=== PATIENT | female | born 1975 | race Two or more races ===

== ENCOUNTER → 2018-03-17 15:54 | Outpatient (CLI) | payer MEDICAID, SELFPAY ==
--- NOTE | 2018-03-17 | CER_PTH ---
PATIENT: MARK GIRON LOC: JEAN U#:[id number] AGE/SX: 49/F ROOM: RE03/17/[address]: Dr. Zeyad Posey MD : 1975 BED: DIS: SPEC #: [id number] RECD: 03/18/18 08:21 STATUS: AALIYAH ANUJ #: [id number] KATHERINE: 03/17/18 00:[address]: Zeyad Posey DEPT: SURGICAL PATHOLOGY RECD BY: Marcelo Rodriguez Tissues: A - Uterine cervix, NOS B - Endocervical Procedures: Surgery Specimen Level IV HEADER OPERATION: Colposcopy with biopsy PRE-OP DIAGNOSIS: LGSIL R87.612 TISSUE SUBMITTED: A - Cervical biopsy, B - ECC MICROSCOPIC DIAGNOSIS A. Cervix, biopsy: Focal HPV change suspected. Mild chronic inflammation. B. Endocervix, curettings: Rare fragments of superficial endocervix. Detached squamous mucosa with focal changes suspicious for HPV cytopathic effect. AM:jakob 03/19/18 COMMENT A & B. Results from immunohistochemistry ([id number]) for surrogate HPV marker (p16) will be reported separately. MICROSCOPIC DESCRIPTION Slides are reviewed. GROSS DESCRIPTION A - Received in fixative is one container labeled with the patient's name and designated cervix biopsy. The specimen consists of multiple irregular fragments of light elizabeth soft tissue that in aggregate measure 0.7 x 0.5 x 0.1 cm. The specimen is totally submitted in one cassette. B - Received in fixative is one container labeled with the patient's name and designated ECC. The specimen consists of multiple irregular fragments of dark elizabeth soft tissue that in aggregate measure 1 x 0.2 x <0.1 cm. The specimen is totally submitted in one cassette. / AM:jakob 03/18/18 TC:3 CPT: 52659 x2
--- NOTE | 2018-03-17 | IMM_PTH ---
PATIENT: MARK GIRON LOC: JEAN U#:[id number] AGE/SX: 49/F ROOM: RE03/17/[address]: Dr. Zeyad Posey MD : 1975 BED: DIS: SPEC #: [id number] RECD: 03/22/18 09:22 STATUS: AALIYAH REJag #: [id number] KATHERINE: 03/17/18 00:[address]: Zeyad Posey DEPT: IMMUNOHISTOCHEMISTRY RECD BY: Carley Solomon Tissues: A - Uterine cervix, NOS B - Endocervical Procedures: p16 (initial) KI-67 (add) PHYSICIAN & INSTITUTION [place] [address] SPECIMEN INFORMATION: Tissue Source: A - Cervical biopsy, B - ECC Clinical Info: MARIAMSIL Specimen Number: [id number] A & B CPT code: 34443 x2, 49029 x2 METHODOLOGY: Deparaffinized sections of prefer/formalin-fixed tissue or PAP/DQ stained slides are incubated with monoclonal/polyclonal antibodies/oligonucleotide probes. Localization is made via biotin free immunoperoxidase method. Appropriate controls are performed and reacted as expected. Results on target cell population are indicated in the following table: RESULTS: ANTIBODY / CLONE RESULT Block A P16 (E6H4) negative Ki-67 (30-9) negative Block B P16 (E6H4) negative Ki-67 (30-9) negative These tests were developed and their performance characteristics determined by [facility]. They may not have been cleared or approved by the U.S. Food and Drug Administration. The FDA has determined that such clearance or approval is not necessary. INTERPRETATION: A. Cervical biopsy: Focal HPV change suspected. B. Endocervix, curettage: Focal HPV change suspected. AM:jakob 03/22/18
--- OUTSIDE RECORDS SUMMARY | 2018-05-19 18:31 | XMS RPT_ITS ---
:1975 Author Organization OHIP Care Team Providers Name Role Phone GENTRY BLAKE, DR. Kamaljit ABREU Attending Unavailable GENTRY BLAKE, DR. Kamaljit ABREU Attending Unavailable GENTRY BLAKE, DR. Kamaljit ABREU Attending Unavailable GENTRY BLAKE, DR. Kamaljit ABREU Attending Unavailable GENTRY BLAKE, DR. Kamaljit ABREU Attending Unavailable Zeyad Posey Attending Unavailable Zeyad Posey Referring Unavailable PROBLEMS PROBLEMS DATE TYPE CONDITION / CODE ATTENDING STATUS SOURCE 03/18/2018 Unknown R87.612 - Low grade Zeyad Posey Active [facility] lesion on cytologic Repository smear of cervix (LGSIL) / R87.612(ICD-10) 01/25/2018 Admitting Melanocytic nevi, GENTRY BLAKE, Active [facility] Diagnosis unspecified / DR. Kamaljit Marie D22.9(ICD-10) Repository 01/25/2018 Admitting Encounter for GENTRY BLAKE, Active [facility] Diagnosis screening for DR. Kamaljit Marie infections with a Repository predominantly sexual mode of transmission / Z11.3(ICD-10) 01/18/2018 Admitting Encounter for GENTRY BLAKE, Active [facility] Diagnosis screening for DR. Kamaljit Marie malignant neoplasm Repository of cervix / Z12.4(ICD-10) 09/30/2017 Admitting Other fatigue / GENTRY BLAKE, Active [facility] Diagnosis R53.83(ICD-10) DR. 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 Kamaljit Marie I10(ICD-10) Repository PROCEDURES PROCEDURES No Procedure Records FoundRESULTS RESULTS CERVICAL Observed: 03/17/2018 Status: F Source: RUI 12:00 AM [facility] REPOSITORY Patient: MARK GIRON : 1975 (42/F) Acct Num: [id number] Phys: Kalpesh MIRANDA,[facility] Num: [id number] Loc: LABSPEC Specimen: [id number] Received: 03/18/18820 Spec Type: CERV TISSUES 1 TISSUES: A. Uterine cervix, NOS B. Endocervical COMMENT A AND B. Results from immunohistochemistry ([id number]) for surrogate HPV marker ( p16) will be reported separately. GROSS DESCRIPTION A - Received in fixative is one container labeled with the patient's name and designated cervix biopsy. The specimen consists of multiple irregular fragments of light elizabeth soft tissue that in aggregate measure 0.7 x 0.5 x 0.1 cm. The specimen is totally submitted in one cassette. B - Received in fixative is one container labeled with the patient's name and designated ECC. The specimen consists of multiple irregular fragments of dark elizabeth soft tissue that in aggregate measure 1 x 0.2 x <0.1 cm. The specimen is totally submitted in one cassette. / AM:jakob 03/18/18 TC:3 CPT: 46958 x2 HEADER OPERATION: Colposcopy with biopsy PRE-OP DIAGNOSIS: LGSIL R87.612 TISSUE SUBMITTED: A - Cervical biopsy, B - ECC MICROSCOPIC DESCRIPTION Slides are reviewed. MICROSCOPIC DIAGNOSIS A. Cervix, biopsy: Focal HPV change suspected. Mild chronic inflammation. B. Endocervix, curettings: Rare fragments of superficial endocervix. Detached squamous mucosa with focal changes suspicious for HPV cytopathic effect. AM:jakob 03/19/18 Signed Tima Pulido DO 03/22/18 <signature on file> Performed By: #### PCER #### Laboratory [address] [place], [address] IMMUNOHISTOCHEMISTRY Observed: 03/17/2018 Status: F Source: EXCHANGE 12:00 AM [facility] REPOSITORY Patient: MARK GIRON : 1975 (42/F) Acct Num: [id number] Phys: Kalpesh MIRANDA,Zeyad Unit Num: [id number] Loc: LABSPEC Specimen: [id number] Received: 03/22/18921 Spec Type: IMMUNO TISSUES 1 TISSUES: A. Uterine cervix, NOS B. Endocervical SPECIMEN INFORMATION: Tissue Source: A - Cervical biopsy, B - ECC Clinical Info: LGSIL Specimen Number: [id number] A AND B CPT code: 49546 x2, 97249 x2 METHODOLOGY: Deparaffinized sections of prefer/formalin-fixed tissue or PAP/DQ stained slides are incubated with monoclonal/polyclonal antibodies/oligonucleotide probes. Localization is made via biotin free immunoperoxidase method. Appropriate controls are performed and reacted as expected. Results on target cell population are indicated in the following table: RESULTS: ANTIBODY / CLONE RESULT Block A P16 (E6H4) negative Ki-67 (30-9) negative Block B P16 (E6H4) negative Ki-67 (30-9) negative These tests were developed and their performance characteristics determined by Laboratory. They may not have been cleared or approved by the U.S. Food and Drug Administration. The FDA has determined that such clearance or approval is not necessary. INTERPRETATION: A. Cervical biopsy: Focal HPV change suspected. B. Endocervix, curettage: Focal HPV change suspected. AM:jakob 03/22/18 PHYSICIAN AND INSTITUTION [place] [address] Signed Tima Pulido, 03/22/18 <signature on file> Performed By: #### PIMM #### Laboratory [address] [place] [address]. [place], [address] CTPCR Collected: 01/25/2018 Status: F Source: [facility] 4:20 PM [facility] REPOSITORY TYPE CODE TESTS RESULT OUT OF REFERENCE UNITS RANGE LAB SCCTPCR(FRANSISCA NC) [facility] Urine Source LAB CTPCR1(LOIN Negative C) Negative C.trachomati s PCR Result Comment: Molecular (PCR) assay performed on the Tania Jaycee 4800 system. LAB CTINT(LOINC) See CT Interp N C. trachomatis Interp Result Comment: C. trachomatis DNA not detected. Specimen is presumptive negative for C. trachomatis. A negative result does not preclude C. trachomatis infection because results depend on adequate specimen collection, absence of inhibitors, and sufficient DNA to be detected. See CT Interp N Performed By: #### CTPCR, NGPCR1 #### [facility] [address] [place] [address] NGPCR Collected: 01/25/2018 Status: F Source: [facility] 4:20 PM [facility] REPOSITORY TYPE CODE TESTS RESULT OUT OF REFERENCE UNITS RANGE LAB GCSRC(LOIN C) GC PCR Source Urine LAB NGPCR(LOIN Negative C) N. gonorrhoeae (PCR) Negative Result Comment: Molecular (PCR) assay performed on the Atnia Jaycee 4800 System. LAB NGINT(LOINC) See NG Interp N N. gonorrhoeae Interp Result Comment: N. gonorrhoeae DNA not detected. Specimen is presumptive negative for N. gonorrhoeae. A negative result does not preclude Neisseria gonorrhoeae infection because results depend on adequate specimen collection, absence of inhibitors, and sufficient DNA to be detected. See NG Interp N Performed By: #### CTPCR, NGPCR1 #### [address] [address] FINAL SURGICAL Observed: 01/25/2018 Status: F Source: [facility] PATHOLOGY REPORT 4:20 PM [facility] REPOSITORY . 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 MARGINS FREE. CLINICAL INFORMATION: BENIGN MOLE SPECIMEN: A SKIN - CHEST GROSS DESCRIPTION: Received in formalin labeled chest skin is a 1.4 x 0.5 x 0.4 cm elizabeth skin ellipse. The surface displays a 0.5 x 0.4 cm ill defined, irregularly shaped, brown macule. No orientation is given. The specimen is inked, sectioned, and entirely submitted in one cassette. Dictated by Scarlett PHILLIPS ([facility]) MICROSCOPIC DESCRIPTION: Slides reviewed. Electronically Signed by Pathology Report verified by [facility] Electronically signed by JOSSUE E SENIOR DO Sign out Date: 01/27/2018 14:19 Performing Lab: [address] Performed By: #### SPFR #### [place] [address] CUSTOMER EXPERT CYTOLOGY REPORT Observed: 01/18/2018 Status: F Source: [facility] 4:27 PM [facility] REPOSITORY . Pathology Reports Accession: Collected Date/Time: Received Date/Time: Pathologist: [id number] 01/18/2018 16:27 EST 01/18/2018 18:00 EST DO JOSSUE MERRILL Harp Maker Cytology Report SPECIMEN: Specimen Description: Liquid Prep Reflex ASCUS Specimen: Cervical Screening or Diagnostic: Screening RELEVANT HISTORY: LMP: Not Given SPECIMEN ADEQUACY: SATISFACTORY FOR EVALUATION ENDOCERVICAL/TRANSFORMATIONAL ZONE COMPONENT ABSENT/INSUFFICIENT INTERPRETATION/RESULTS: LOW GRADE SQUAMOUS INTRAEPITHELIAL LESION Electronically Signed by Pathology report verified by [facility] Screened by: EVANGELINA MES Electronically signed by JOSSUE MERRILL DO Sign-Out Date: 01/25/2018 12:23 Performing Lab: [address] Disclaimer The Pap test is a screening test for cervical cancer. As evidenced by published data, it is subject to both inherent false negative and false positive results. Your patient's results should be interpreted in context with pertinent clinical history including gynecological examination. Performed By: #### GYCR #### [place] [address] .GFR Collected: 09/30/2017 Status: F Source: [facility] 9:09 AM [facility] REPOSITORY TYPE CODE TESTS RESULT OUT OF REFERENCE UNITS RANGE LAB GFRAA(LOINC ml/min/1.73 ) sqm GFR >60 Montenegrin Result Comment: GFR Population mean for , Non- Americans Ages 20-29 = 116 mL/min/1.73 sq.m. Ages 30-39 = 107 mL/min/1.73 sq.m. Ages 40-49 = 99 mL/min/1.73 sq.m. Ages 50-59 = 93 mL/min/1.73 sq.m. Ages 60-69 = 85 mL/min/1.73 sq.m. Ages 70+ = 75 mL/min/1.73 sq.m. Chronic Kidney Disease: Less than 60 mL/min/1.73 square meters End Stage Renal Disease: Less than 15 mL/min/1.73 square meters LAB GFRNO(LOINC) ml/min/1.73sqm GFR Non- >60 Result Comment: GFR Population mean for , Non- Americans Ages 20-29 = 116 mL/min/1.73 sq.m. Ages 30-39 = 107 mL/min/1.73 sq.m. Ages 40-49 = 99 mL/min/1.73 sq.m. Ages 50-59 = 93 mL/min/1.73 sq.m. Ages 60-69 = 85 mL/min/1.73 sq.m. Ages 70+ = 75 mL/min/1.73 sq.m. Chronic Kidney Disease: Less than 60 mL/min/1.73 square meters End Stage Renal Disease: Less than 15 mL/min/1.73 square meters Performed By: #### GFR, CBC, ADIFF, ANEU, TSH, CMP, B12, LIPID #### [address] [address] CBC Collected: 09/30/2017 Status: F Source: [facility] 9:09 AM [facility] REPOSITORY TYPE CODE TESTS RESULT OUT OF REFERENCE UNITS RANGE LAB WBC(LOINC) 4.50-10.80 10 3/mcL WBC 9.10 LAB RBCCT(LOINC 4.10-5.30 10 6/mcL ) RBC 4.48 LAB HGB(LOINC) 12.0-16.0 G/dL Hgb 13.2 LAB HCT(LOINC) 34.0-46.0 % Hct 39.7 LAB MCV(LOINC) 80.0-99.0 fL MCV 88.6 LAB MCH(LOINC) 27.0-33.0 pg MCH 29.4 LAB MCHC(LOINC) 32.0-36.0 G/dL MCHC 33.2 LAB RDW(LOINC) 11.5-15.5 % RDW 14.7 LAB PLT(LOINC) 150-450 10 3/mcL Platelet 310 LAB MPV(LOINC) 6.6-10.5 fL MPV 9.2 Performed By: #### GFR, CBC, ADIFF, ANEU, TSH, CMP, B12, LIPID #### [place] [address] .AUTO DIFF Collected: 09/30/2017 Status: F Source: [facility] 9:09 AM [facility] REPOSITORY TYPE CODE TESTS RESULT OUT OF REFERENCE UNITS RANGE LAB LUCY(LOINC) 50.0-75.0 % Neutrophil % 67.0 LAB LYM(LOINC) 20.0-40.0 % Lymphocyte % 23.3 LAB MON(LOINC) 2.0-13.0 % Monocyte % 6.3 LAB EO(LOINC) 0.0-6.0 % Eosinophil % 2.8 LAB BAS(LOINC) 0.0-2.5 % Basophil % 0.6 LAB ABLYM(LOIN 0.90-4.32 10 3/mcL C) Lymphocyte, 2.10 Absolute LAB VAL(LOINC 0.09-1.40 10 3/mcL ) Monocyte, 0.60 Absolute LAB AEOS(LOINC 0.00-0.65 10 3/mcL ) Eosinophil, 0.30 Absolute LAB ABAS(LOINC 0.00-0.27 10 3/mcL ) Basophil, 0.10 Absolute Performed By: #### GFR, CBC, ADIFF, ANEU, TSH, CMP, B12, LIPID #### [place] [address] .NEUABS Collected: 09/30/2017 Status: F Source: [facility] 9:09 AM [facility] REPOSITORY TYPE CODE TESTS RESULT OUT OF REFERENCE UNITS RANGE LAB ANEU(LOINC) 2.25-8.10 10 3/mcL Neutrophil, 6.10 Absolute Performed By: #### GFR, CBC, ADIFF, ANEU, TSH, CMP, B12, LIPID #### [place] [address] TSH Collected: 09/30/2017 Status: F Source: [facility] 9:09 AM [facility] REPOSITORY TYPE CODE TESTS RESULT OUT OF RANGE REFERENCE UNITS LAB TSH(LOINC) 0.360-3.740 mcIU/mL TSH 1.800 Result Comment: Please note as of 09/06/16 new pediatric reference intervals were added for this test. Performed By: #### GFR, CBC, ADIFF, ANEU, TSH, CMP, B12, LIPID #### [place] [address] CMP Collected: 09/30/2017 Status: F Source: [facility] 9:09 AM [facility] REPOSITORY TYPE CODE TESTS RESULT OUT OF REFERENCE UNITS RANGE LAB GLU(LOINC) 70-110 mg/dL Glucose Level 88 LAB NA(LOINC) 136-145 mEq/L Sodium Level 142 LAB K(LOINC) 3.5-5.0 mEq/L Potassium Level 4.4 LAB CL(LOINC) 98-110 mEq/L Chloride 107 LAB CO2(LOINC) 22-32 mEq/L CO2 23 LAB EBAL(LOINC 4.0-15.0 mEq/L ) Electrolyte Balance 12.0 LAB BUN(LOINC) 8.0-22.0 mg/dL Low BUN 7.0 LAB CRE(LOINC) 0.50-1.20 mg/dL Creatinine Lvl (s) 0.67 LAB BC(LOINC) 10.0-22.0 ratio BUN/Creatinine 10.4 Ratio LAB CA(LOINC) 8.4-10.1 mg/dL Calcium Lvl 8.8 LAB PROT(LOINC 6.0-8.5 G/dL ) Total Protein 6.7 LAB ALB(LOINC) 3.2-4.8 G/dL Albumin Level 3.4 LAB GLB(LOINC) 1.5-3.8 G/dL Globulin 3.3 LAB AG(LOINC) 0.9-1.6 ratio A/G Ratio 1.0 LAB BILT(LOINC 0.2-1.2 mg/dL ) Bili Total 0.5 LAB AP(LOINC) 38-126 U/L Alk Phos 61 LAB AST(LOINC) 8-34 U/L AST/SGOT 18 LAB ALT(LOINC) 10-49 U/L ALT/SGPT 28 Performed By: #### GFR, CBC, ADIFF, ANEU, TSH, CMP, B12, LIPID #### [place] [id number] [place] [address] B12 Collected: 09/30/2017 Status: F Source: [facility] 9:09 AM [facility] REPOSITORY TYPE CODE TESTS RESULT OUT OF REFERENCE UNITS RANGE LAB B12(LOINC) 211-911 pg/mL Vitamin B12 319 Lvl Performed By: #### GFR, CBC, ADIFF, ANEU, TSH, CMP, B12, LIPID #### [facility] [address] [place] [address] LIPID Collected: 09/30/2017 Status: F Source: [facility] 9:09 AM [facility] REPOSITORY TYPE CODE TESTS RESULT OUT OF REFERENCE UNITS RANGE LAB CHOL(LOINC 50-199 mg/dL ) Cholesterol 177 Result Comment: Cholesterol Reference Interval: Less than 200 Desirable 200-239 Borderline high risk 240 and above High risk LAB TRIG(LOINC) 3-149 mg/dL Triglycerides 114 Result Comment: Triglyceride Reference Interval: Less than 150 Normal 150-199 Borderline high risk 200-499 High risk 500 or higher Very high risk LAB HD(LOINC) 40-59 mg/dL HDL High Cholesterol 63 Result Comment: HDL Reference Interval: Less than 40 Low - high risk 60 or above Optimal/lowers risk LAB LDL(LOINC) 0-129 mg/dL LDL Cholesterol 91 Result Comment: LDL is a calculated result and requires a 12-hr fast. LDL Reference Interval: Less than 100 Optimal 100-129 Near or above optimal 130-159 Borderline high risk 160-189 High risk 190 and above Very high risk Performed By: #### GFR, CBC, ADIFF, ANEU, TSH, CMP, B12, LIPID #### [address] [address] BMP Collected: 05/26/2017 Status: F Source: [facility] 9:58 AM [facility] REPOSITORY TYPE CODE TESTS RESULT OUT OF REFERENCE UNITS RANGE LAB GLU(LOINC) 70-110 mg/dL Glucose Level 92 LAB NA(LOINC) 136-145 mEq/L Sodium Level 140 LAB K(LOINC) 3.5-5.0 mEq/L Potassium Level 4.2 LAB CL(LOINC) 98-110 mEq/L Chloride 107 LAB CO2(LOINC) 22-32 mEq/L CO2 26 LAB EBAL(LOINC 4.0-15.0 mEq/L ) Electrolyte Balance 7.0 LAB BUN(LOINC) 8.0-22.0 mg/dL BUN 17.0 LAB CRE(LOINC) 0.50-1.20 mg/dL Creatinine Lvl (s) 0.76 LAB BC(LOINC) 10.0-22.0 ratio High BUN/Creatinine 22.4 Ratio LAB CA(LOINC) 8.4-10.1 mg/dL Calcium Lvl 9.4 Performed By: #### BMP, GFR #### [place] [address] .GFR Collected: 05/26/2017 Status: F Source: [facility] 9:58 AM [facility] REPOSITORY TYPE CODE TESTS RESULT OUT OF REFERENCE UNITS RANGE LAB GFRAA(LOINC ml/min/1.73 ) sqm GFR >60 [place] Result Comment: GFR Population mean for , Non- Americans Ages 20-29 = 116 mL/min/1.73 sq.m. Ages 30-39 = 107 mL/min/1.73 sq.m. Ages 40-49 = 99 mL/min/1.73 sq.m. Ages 50-59 = 93 mL/min/1.73 sq.m. Ages 60-69 = 85 mL/min/1.73 sq.m. Ages 70+ = 75 mL/min/1.73 sq.m. Chronic Kidney Disease: Less than 60 mL/min/1.73 square meters End Stage Renal Disease: Less than 15 mL/min/1.73 square meters LAB GFRNO(LOINC) ml/min/1.73sqm GFR Non- >60 Result Comment: GFR Population mean for , Non- Americans Ages 20-29 = 116 mL/min/1.73 sq.m. Ages 30-39 = 107 mL/min/1.73 sq.m. Ages 40-49 = 99 mL/min/1.73 sq.m. Ages 50-59 = 93 mL/min/1.73 sq.m. Ages 60-69 = 85 mL/min/1.73 sq.m. Ages 70+ = 75 mL/min/1.73 sq.m. Chronic Kidney Disease: Less than 60 mL/min/1.73 square meters End Stage Renal Disease: Less than 15 mL/min/1.73 square meters Performed By: #### BMP, GFR #### [place] [address] ALLERGIES ALLERGIES No Allergies Records FoundENCOUNTERS ENCOUNTERS ADMIT/DISCHARGE ACCOUNT NUMBER ADMITTING ENCOUNTER LOCATION SOURCE CLASS 03/17/2018 [id number] Ambulatory [facility] ding:[facility]SPEC Repository 01/25/2018/01/30/20 [id number] Ambulatory ABuilding:GOKUL Ferro[address] Repository 01/25/2018/01/30/20 [id number] Ambulatory ABuilding:MARTIN Maddox [facility] Repository 01/18/2018/01/23/20 [id number] Ambulatory ABuilding:MARTIN Maddox [facility] Repository 09/30/2017/10/05/19 [id number] Ambulatory [facility] JOSHUA [place] [facility] BBuilding:[facility] Repository 05/26/2017/05/31/19 [id number] [facility] [address] [facility]Building:[facility] Repository PAYERS PAYERS ENCOUNTER GUARANTOR PAYER SUBSCRIBER SOURCE 03/17/2018 MARK NITESH Primary MARK HERRINGB: Rui GORDILLO Insurance:[place] [id number] [address]Lvj: . () PLANPolicy Number: Repository [id number] Date:[id number] [address]DB: 03/17/2018 Secondary NOT GIVENUNK Rui Insurance:SELF PAY [facility] Number: Effective Repository Date:2018-03-17 01/25/2018 MARK NIMAB: Primary MARK SALAZARBENTONB: [employer] Insurance:[place] [id number] [facility] [address] Repository [place], [place] Number: [place], [place] [address]Bcx: [phone] [id number]: Date:2018-01-25 [phone] ()Tel: [phone] () (WP) Name:ANAO Clemencia 000-0000 () MARIO Bhat [address]IW: 01/25/2018 MARK HERRINGB: Primary MARK GIRONB: [employer] Insurance:[place] [id number] [facility] [address] Repository [place], [place] Number: [place], [place] [address]Yho: [phone] [id number]: Date:2018-01-253006 (HP)Tel: [phone] (HP) (WP) Name:[address] (WP) [address] [place] [address]CA: 01/18/2018 MARK HERRINGB: Primary MARK FINLEYDOB: [place] [employer] Insurance:[place] [id number] [facility] [address] [facility] [address] Repository [place], [place] Number: [place], [place] [address]Dso: [phone] [id number] [id number]: Date:2018-01-18300 (HP)Tel: [phone] (HP) (WP) Name:[address] (WP) [address] [place] [address]KY: 09/30/2017 MARK HERRINGB: Primary MARK MARTINLEYDOB: [place] [employer] Insurance:[place] [id number] [facility] [address] [facility] [address] Repository [place], [place] Number: [place], [place] [address]Ayx: [phone] [id number] [id number]: Date:2017-09-30300 (HP)Tel: [phone] (HP) (WP) Name:[address] (WP) [address] [address]FU: 05/26/2017 MARK HERRINGB: Primary MARK FINLEYDOB: [facility] Insurance:[facility] [id number] [facility] [address] Repository [place], [place] Number: [place], [place] [address]Nqb: [phone] [id number]: Date:2017-05-26300 ()Tel: [phone] () (WP) Name:XPO Clemencia 000-0000 (WP) [address] [address]YQ:
== END ==
PROVIDERS: Referring Provider Obstetrics & Gynecology; Visit Provider Obstetrics & Gynecology
DX: R87.612 Low grade squamous intraepithelial lesion on cytologic smear of cervix (LGSIL) (principal)
CPT/HCPCS: 88305; 88341; 88342

== ENCOUNTER → 2019-04-08 | Outpatient (CLI) | payer MEDICAID, SELFPAY ==
[2019-04-12 15:06] LABS: HPV APTIMA, High Risk Positive (Negative); HPV Reflexed? YES, CHARGE PATIENT
== END | disposition home or self-care (01) ==
LOC: LABSPEC 14:50
PROVIDERS: Visit Provider Obstetrics & Gynecology
DX: Z12.4 Encounter for screening for malignant neoplasm of cervix (principal)
CPT/HCPCS: 87624; 88175; G0145

== ENCOUNTER → 2019-09-23 | Outpatient (CLI) | payer MEDICAID, SELFPAY ==
--- NOTE | 2019-09-23 | IMM_PTH ---
PATIENT: MARK GIRON LOC: [facility] U#:[id number] AGE/SX: 44/F ROOM: RE09/23/[address]: Dr. Zeyad Posey MD : 1975 BED: DIS: 09/23/2019 SPEC #: [id number] RECD: 09/27/19 12:46 STATUS: AALIYAH REQ #: [id number] KATHERINE: 09/23/19 00:[address]: Zeyad Posey DEPT: IMMUNOHISTOCHEMISTRY RECD BY: Carley Solomon ENTERED: 09/27/19 12:46 SP TYPE: IMMUNO OT DR: No Primary Care Phys Tissues: A - Uterine cervix, NOS B - Endocervical Procedures: p16 (initial) KI-67 (add) PHYSICIAN & INSTITUTION [place] [address] SPECIMEN INFORMATION: Tissue Source: A - Cervical biopsy 9 o'clock, B - [facility] Clinical Info: R87.810 Specimen Number: [id number] A & B CPT code: 53291 x2, 09496 x2 METHODOLOGY: Deparaffinized sections of prefer/formalin-fixed tissue or PAP/DQ stained slides are incubated with monoclonal/polyclonal antibodies/oligonucleotide probes. Localization is made via biotin free immunoperoxidase method. Appropriate controls are performed and reacted as expected. Results on target cell population are indicated in the following table: RESULTS: ANTIBODY / CLONE RESULT Block A P16 (E6H4) negative Ki-67 (30-9) negative Block B P16 (E6H4) negative Ki-67 (30-9) negative These tests were developed and their performance characteristics determined by [facility]. They may not have been cleared or approved by the [place] Food and Drug Administration. The FDA has determined that such clearance or approval is not necessary. The above immunohistochemical/dualISH markers are ordered and reviewed by the Pathologist. INTERPRETATION: A. 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 B. ECC: Negative for dysplasia. SJ:jakob 09/28/19 Case has been reviewed in consultation with Dr. Pulido who concurs with the above diagnosis. IDC:AM
--- NOTE | 2019-09-23 | CER_PTH ---
PATIENT: MARK GIRON LOC: [facility] U#:[id number] AGE/SX: 44/F ROOM: RE09/23/[address]: Dr. Zeyad Posey MD : 1975 BED: DIS: 09/23/2019 SPEC #: [id number] RECD: 09/23/19 13:39 STATUS: AALIYAH REJag #: [id number] KATHERINE: 09/23/19 00:[address]: Zeyad Posey DEPT: SURGICAL PATHOLOGY RECD BY: Andrew Marcus ENTERED: 09/26/19 08:32 SP TYPE: CERV OT DR: No Primary Care Phys Tissues: A - Uterine cervix, NOS B - Endocervical Procedures: Surgery Specimen Level IV HEADER OPERATION: Colposcopy PRE-OP DIAGNOSIS: R87.810 TISSUE SUBMITTED: A - Cervical biopsy 9 o'clock, B - ECC MICROSCOPIC DIAGNOSIS A. Cervix, 9 o'clock, biopsy: Focal changes consistent with HPV cytopathic effects. See comment. BDelvis ECC: Fragments of benign squamous epithelium, blood and mucous, negative for dysplasia. See comment. CHRISTIN:jakob 09/27/19 COMMENT A & B. Results of immunohistochemistry ([id number]) for surrogate HPV marker (p16) will be reported separately. Please make reference to previous specimen ([id number]) cervix, biopsy with diagnosis of focal HPV change suspected. Case has been reviewed in consultation with Dr. Pulido who concurs with the above diagnosis. IDC:AM MICROSCOPIC DESCRIPTION Slides are reviewed. GROSS DESCRIPTION A - Received in fixative is one container labeled with the patient's name and designated cervical biopsy 9 o'clock. The specimen consists of multiple irregular fragments of light elizabeth soft tissue that in aggregate measure 0.5 x 0.3 x 0.1 cm. The specimen is totally submitted in one cassette. B - Received in fixative is one container labeled with the patient's name and designated ECC. The specimen consists of multiple fragments of hemorrhagic mucoid tissue that in aggregate measure 1 x 1 x 0.1 cm. The specimen is totally submitted in one cassette. / SJ:jakob 09/26/19 TC:5 CPT: 50609 x2
== END | disposition home or self-care (01) ==
LOC: LABSPEC 14:04
PROVIDERS: Referring Provider Obstetrics & Gynecology; Visit Provider Obstetrics & Gynecology
DX: R87.810 Cervical high risk human papillomavirus (HPV) DNA test positive (principal)
CPT/HCPCS: 88305; 88341; 88342